=== PATIENT | female | born 1955 | race Caucasian/White ===

== ENCOUNTER → 2016-06-06 | Outpatient (CLI) | payer BC ==
[~2016-06-06] MED LIST: B-12500 MCG PO; CARDI-OMEGA1000 MG PO; CIPRO 250MG TA250 MG PO; LEVOTHYROXIN0.112 MG PO; VAGIFEM10 MCG VG; VITAMIN D1000 IU PO
== END ==
LOC: RAD 15:37
DX: M79.644 Pain in right finger(s) (principal); M13.841 Other specified arthritis, right hand

== ENCOUNTER → 2016-12-28 | Outpatient (CLI) | payer BC ==
[2011-12-31 21:31] VITALS: BP 148/81
== END ==
LOC: MAMMO 08:01
DX: Z12.31 Encounter for screening mammogram for malignant neoplasm of breast (principal); E03.4 Atrophy of thyroid (acquired); Z11.59 Encounter for screening for other viral diseases
CPT/HCPCS: G0202

== ENCOUNTER → 2017-01-18 | Outpatient (CLI) | payer BC ==
[2011-12-31 21:31] VITALS: BP 148/81
== END ==
LOC: LAB 13:53
DX: R31.9 Hematuria, unspecified (principal); R30.0 Dysuria; Z87.448 Personal history of other diseases of urinary system; Z01.419 Encounter for gynecological examination (general) (routine) without abnormal findings

== ENCOUNTER → 2018-01-08 | Outpatient (CLI) | payer BC ==
[2011-12-31 21:31] VITALS: BP 148/81
== END ==
LOC: MAMMO 11:22
DX: Z12.31 Encounter for screening mammogram for malignant neoplasm of breast (principal)

== ENCOUNTER → 2018-01-10 | Outpatient (CLI) | payer BC ==
[2011-12-31 21:31] VITALS: BP 148/81
== END ==
LOC: RAD 11:36
DX: R92.8 Other abnormal and inconclusive findings on diagnostic imaging of breast (principal)

== ENCOUNTER → 2018-01-11 | Outpatient (CLI) | payer BC ==
[2011-12-31 21:31] VITALS: BP 148/81
[2018-01-11 07:27] LABS: BASO # 0.1 (0.02-0.10); EOS # 0.2 (0.04-0.40); HEMATOCRIT 43.3 % (37.0-47.0); HEMOGLOBIN 14.9 g/dL (12.5-16.0); LYMPH# 2.4 (1.50-4.00); MEAN CELL VOLUME 89 fl (78-100); MEAN CORPUSCULAR HEMOGLOBIN 31 pg (27-31); MEAN CORPUSCULAR HGB CONC 34 g/dL (33-37); MEAN PLATELET VOLUME 10.1 fl (7.4-10.4); MONO # 0.4 (0.20-0.80); NEU # 3.3 (1.40-6.50); PLATELET COUNT 205 K/mm3 (130-400); RED BLOOD COUNT 4.89 M/mm3 (4.10-5.30); WHITE BLOOD COUNT 6.3 K/mm3 (4.8-10.8)
[2018-01-11 07:40] LABS: ALBUMIN 4.2 g/dL (3.5-5.0); CALCIUM 9.2 mg/dL (8.4-10.2); POTASSIUM 4.3 mmol/L (3.6-5.0); TOTAL BILIRUBIN 0.7 mg/dL (0.2-1.3); TOTAL PROTEIN 7.4 g/dL (6.3-8.2)
== END ==
LOC: LAB 07:10
PROVIDERS: Family Medicine
DX: Z01.419 Encounter for gynecological examination (general) (routine) without abnormal findings (principal); E03.4 Atrophy of thyroid (acquired)

== ENCOUNTER → 2018-03-07 | Outpatient (CLI) | payer BC ==
[2011-12-31 21:31] VITALS: BP 148/81
== END ==
LOC: MAMMO 13:45
DX: N64.4 Mastodynia (principal); R20.8 Other disturbances of skin sensation

== ENCOUNTER → 2019-01-28 | Outpatient (CLI) | payer BC ==
[2011-12-31 21:31] VITALS: BP 148/81
[2019-01-28 07:47] LABS: BASO # 0.1 (0.02-0.10); EOS # 0.2 (0.04-0.40); EOS % 3.6 % (1.0-5.0); HEMATOCRIT 42.8 % (37.0-47.0); HEMOGLOBIN 14.6 g/dL (12.5-16.0); MEAN CELL VOLUME 89 fl (78-100); MEAN CORPUSCULAR HEMOGLOBIN 30 pg (27-31); MEAN CORPUSCULAR HGB CONC 34 g/dL (33-37); MEAN PLATELET VOLUME 10.2 fl (7.4-10.4); MONO # 0.4 (0.20-0.80); PLATELET COUNT 196 K/mm3 (130-400); RED BLOOD COUNT 4.82 M/mm3 (4.10-5.30); WHITE BLOOD COUNT 5.8 K/mm3 (4.8-10.8)
[2019-01-28 07:50] LABS: ALBUMIN 4.3 g/dL (3.4-4.8); POTASSIUM 3.7 mmol/L (3.5-5.1)
[2019-01-28 07:51] LABS: CALCIUM 9.3 mg/dL (8.3-10.5)
[2019-01-28 07:53] LABS: TOTAL PROTEIN 7.1 g/dL (6.2-8.1)
[2019-01-28 07:54] LABS: TOTAL BILIRUBIN 0.7 mg/dL (0.2-1.2)
== END ==
LOC: MAMMO 07:28
PROVIDERS: Family Medicine
DX: Z01.419 Encounter for gynecological examination (general) (routine) without abnormal findings (principal); Z12.31 Encounter for screening mammogram for malignant neoplasm of breast; E03.4 Atrophy of thyroid (acquired)

== ENCOUNTER → 2020-03-16 | Outpatient (CLI) | payer BC ==
[2011-12-31 21:31] VITALS: BP 148/81
[2020-03-16 08:52] LABS: BASO # 0.1 (0.02-0.10); EOS # 0.2 (0.04-0.40); EOS % 2.4 % (1.0-5.0); HEMATOCRIT 45.2 % (37.0-47.0); HEMOGLOBIN 15.4 g/dL (12.5-16.0); LYMPH# 2.5 (1.50-4.00); MEAN CELL VOLUME 88 fl (78-100); MEAN CORPUSCULAR HEMOGLOBIN 30 pg (27-31); MEAN CORPUSCULAR HGB CONC 34 g/dL (33-37); MONO # 0.5 (0.20-0.80); NEU # 4.6 (1.40-6.50); PLATELET COUNT 240 K/mm3 (130-400); RED BLOOD COUNT 5.13 M/mm3 (4.10-5.30); RED CELL DISTRIBUTION WIDTH 12.7 % (11.5-14.5); WHITE BLOOD COUNT 7.8 K/mm3 (4.8-10.8)
[2020-03-16 09:15] LABS: ALBUMIN 4.4 g/dL (3.4-4.8); POTASSIUM 3.7 mmol/L (3.5-5.1)
[2020-03-16 09:16] LABS: CALCIUM 9.5 mg/dL (8.3-10.5)
[2020-03-16 09:18] LABS: TOTAL PROTEIN 7.9 g/dL (6.2-8.1)
[2020-03-16 09:20] LABS: TOTAL BILIRUBIN 0.8 mg/dL (0.2-1.2)
== END ==
LOC: MAMMO 08:37
PROVIDERS: Family Medicine
DX: Z01.419 Encounter for gynecological examination (general) (routine) without abnormal findings (principal); Z12.31 Encounter for screening mammogram for malignant neoplasm of breast; Z13.820 Encounter for screening for osteoporosis; E03.9 Hypothyroidism, unspecified; Z91.89 Other specified personal risk factors, not elsewhere classified

== ENCOUNTER → 2021-01-25 | Outpatient (CLI) | payer BC ==
[2021-01-25 08:06] LABS: BASO # 0.07 (0.02-0.10); EOS # 0.26 (0.04-0.40); EOS % 4.2 % (1.0-5.0); HEMOGLOBIN 15.1 g/dL (12.5-16.0); LYMPH# 2.22 (1.50-4.00); MEAN CELL VOLUME 90 fl (78-100); MEAN CORPUSCULAR HEMOGLOBIN 30 pg (27-31); MEAN CORPUSCULAR HGB CONC 34 g/dL (33-37); MEAN PLATELET VOLUME 9.8 fl (7.4-10.4); MONO # 0.38 (0.20-0.80); NEU # 3.27 (1.40-6.50); PLATELET COUNT 207 K/mm3 (130-400); RED BLOOD COUNT 4.98 M/mm3 (4.10-5.30); RED CELL DISTRIBUTION WIDTH 12.6 % (11.5-14.5); WHITE BLOOD COUNT 6.2 K/mm3 (4.8-10.8)
[2021-01-25 08:12] LABS: ALBUMIN 4.2 g/dL (3.4-4.8); POTASSIUM 4.7 mmol/L (3.5-5.1)
[2021-01-25 08:14] LABS: TOTAL PROTEIN 7.2 g/dL (6.2-8.1)
[2021-01-25 08:16] LABS: TOTAL BILIRUBIN 0.9 mg/dL (0.2-1.2)
== END ==
LOC: LAB 07:42
PROVIDERS: Family Medicine
DX: Z00.00 Encounter for general adult medical examination without abnormal findings (principal); E55.9 Vitamin D deficiency, unspecified; E03.9 Hypothyroidism, unspecified; E78.5 Hyperlipidemia, unspecified

== ENCOUNTER → 2021-02-17 | Outpatient (CLI) | payer BC | LOC: MAMMO 02-15 08:30 | DX: Z12.31 Encounter for screening mammogram for malignant neoplasm of breast (principal) ==

== ENCOUNTER → 2021-03-21 | Outpatient (CLI) | payer BC | LOC: LAB 09:43 | DX: E55.9 Vitamin D deficiency, unspecified (principal); E03.9 Hypothyroidism, unspecified ==

== ENCOUNTER → 2022-01-16 | Day surgery (SDC) | payer BC | LOC: MSO 07:32 | DX: Z12.11 Encounter for screening for malignant neoplasm of colon (principal) | CPT/HCPCS: 00812; J2704; J3490; J7120 ==

== ENCOUNTER → 2022-01-31 | Outpatient (CLI) | payer BC | LOC: MAMMO 09:46 | DX: Z12.31 Encounter for screening mammogram for malignant neoplasm of breast (principal) ==

== ENCOUNTER → 2022-02-01 | Outpatient (CLI) | payer BC ==
[2022-02-01 08:33] LABS: POTASSIUM 4.3 mmol/L (3.5-5.1)
[2022-02-01 08:34] LABS: ALBUMIN 4.4 g/dL (3.4-4.8)
[2022-02-01 08:35] LABS: CALCIUM 9.6 mg/dL (8.3-10.5)
[2022-02-01 08:36] LABS: TOTAL PROTEIN 7.4 g/dL (6.2-8.1)
[2022-02-01 08:38] LABS: TOTAL BILIRUBIN 0.8 mg/dL (0.2-1.2)
[2022-02-01 08:51] LABS: BASO # 0.08 K/mm3 (0.02-0.10); EOS # 0.18 K/mm3 (0.04-0.40); EOS % 2.8 % (1.0-5.0); HEMATOCRIT 44.8 % (37.0-47.0); HEMOGLOBIN 15.3 g/dL (12.5-16.0); LYMPH# 2.06 K/mm3 (1.50-4.00); MEAN CELL VOLUME 90 fl (78-100); MEAN CORPUSCULAR HEMOGLOBIN 31 pg (27-31); MEAN CORPUSCULAR HGB CONC 34 g/dL (33-37); MEAN PLATELET VOLUME 10.3 fl (7.4-10.4); MONO # 0.38 K/mm3 (0.20-0.80); NEU # 3.75 K/mm3 (1.40-6.50); PLATELET COUNT 224 K/mm3 (130-400); RED BLOOD COUNT 4.96 M/mm3 (4.10-5.30); WHITE BLOOD COUNT 6.5 K/mm3 (4.8-10.8)
== END ==
LOC: LAB 07:45
PROVIDERS: Family Medicine
DX: Z00.00 Encounter for general adult medical examination without abnormal findings (principal); E78.5 Hyperlipidemia, unspecified; E03.9 Hypothyroidism, unspecified; E55.9 Vitamin D deficiency, unspecified

== ENCOUNTER → 2023-02-01 | Outpatient (CLI) | payer BC | LOC: MAMMO 09:49 | DX: Z12.39 Encounter for other screening for malignant neoplasm of breast (principal); Z13.820 Encounter for screening for osteoporosis ==

== ENCOUNTER → 2023-03-16 | Outpatient (CLI) | payer BC ==
[2023-03-16 08:29] LABS: BASO # 0.09 K/mm3 (0.02-0.10); EOS % 3.1 % (1.0-5.0); HEMATOCRIT 45.3 % (37.0-47.0); HEMOGLOBIN 15.2 g/dL (12.5-16.0); LYMPH# 2.23 K/mm3 (1.50-4.00); MEAN CELL VOLUME 91 fl (78-100); MEAN CORPUSCULAR HEMOGLOBIN 31 pg (27-31); MEAN CORPUSCULAR HGB CONC 34 g/dL (33-37); MEAN PLATELET VOLUME 9.7 fl (7.4-10.4); MONO # 0.35 K/mm3 (0.20-0.80); NEU # 3.63 K/mm3 (1.40-6.50); PLATELET COUNT 218 K/mm3 (130-400); RED BLOOD COUNT 4.98 M/mm3 (4.10-5.30); RED CELL DISTRIBUTION WIDTH 12.8 % (11.5-14.5); WHITE BLOOD COUNT 6.5 K/mm3 (4.8-10.8)
[2023-03-16 08:41] LABS: ALBUMIN 4.2 g/dL (3.4-4.8)
[2023-03-16 08:42] LABS: CALCIUM 9.4 mg/dL (8.3-10.5)
[2023-03-16 08:44] LABS: TOTAL PROTEIN 7.2 g/dL (6.2-8.1)
[2023-03-16 08:45] LABS: TOTAL BILIRUBIN 0.5 mg/dL (0.2-1.2)
== END ==
LOC: LAB 08:17
PROVIDERS: Family Medicine
DX: Z00.00 Encounter for general adult medical examination without abnormal findings (principal); Z13.820 Encounter for screening for osteoporosis; Z12.39 Encounter for other screening for malignant neoplasm of breast; E78.5 Hyperlipidemia, unspecified; E55.9 Vitamin D deficiency, unspecified; E03.9 Hypothyroidism, unspecified

== ENCOUNTER → 2023-06-14 | Outpatient (CLI) | payer BC | LOC: LAB 08:37 | DX: E03.9 Hypothyroidism, unspecified (principal) ==

== ENCOUNTER → 2024-02-06 | Outpatient (CLI) | payer BC | LOC: MAMMO 08:43 | DX: Z12.31 Encounter for screening mammogram for malignant neoplasm of breast (principal) ==